=== PATIENT | female | born 1950 | race Caucasian/White ===

== ENCOUNTER 2020-10-21 09:11 | Emergency (ER) | payer MEDICARE, SELFPAY ==
[2020-10-21 09:13] VITALS: BP 117/87; PULSE 77; RESP 16; TEMP 37; O2SAT 98; BMI 23.3
--- NOTE | 2020-10-21 10:28 | HMH.EDUTC ---
[facility] [place] Disposition Clinical Impression: Exposure to COVID-19 virus Disposition: Home, Self-Care Condition on Discharge: Good Instructions: Preventing the Spread of Coronavirus Discharge Instructions Additional Instructions: Drink plenty of fluids. Take tylenol for pain or fever. Return if you begin to have difficulty breathing. Follow up with your regular doctor. GO TO THE ER FOR ANY WORSENING SYMPTOMS Quarantine until you know the results of your covid-19 test. If it is positive, the health department should call you and give you further instructions about your length of Quarantine and other thing. Referrals: Ted Rodriguez MD [Primary Care Provider] - Time of Disposition: 10:29 Medical Decision Making - Medical Records Medical records reviewed: No: I reviewed the patient's medical records. - Lucas Inquiry Pt receiving controlled substance: No Vital Signs: 10/21/20 09:13 10/21/20 10:33 Temperature 98.6 F 98.6 F Temperature Source Oral Pulse Rate 77 Pulse Rate [Right] 77 Respiratory Rate 16 16 Blood Pressure 117/87 Blood Pressure [Right Arm] 117/87 Blood Pressure Mean [Right Arm] 97 02 Sat by Pulse Oximetry 98 [facility] [place] HPI - General Stated complaint: covid test exposure Time Seen by Provider: 10/21/20 10:28 - History of Present Illness Provider Complaint: She has been exposed to covid-19 around 4 days ago. She has been vaccinated. She denies any symptoms. - Related Data Allergies Allergy/AdvReac Type Severity Reaction Status Date / Time amiodarone [AMIODARONE] Allergy Unknown Unverified 02/20/17 14:01 [facility] History - Hepatitis A Screen Attestation statement:: This patient has been screened for Hepatitis A risk factors. I have reviewed the patient's past medical history: Yes ROS Obtained: Yes All systems reviewed & no additional complaints - Constitutional Constitutional: Reports system reviewed and no additional complaints, except as docu - Eyes Eyes: Reports system reviewed and no additional complaints, except as docu - ENT Ears, Nose, Mouth, and Throat: Reports system reviewed and no additional complaints, except as docu - Cardiovascular Cardiovascular: Reports system reviewed and no additional complaints, except as docu - Respiratory Respiratory: Reports system reviewed and no additional complaints, except as docu - Gastrointestinal Gastrointestingal: Reports: system reviewed and no additional complaints, except as docu Physical Exam - General General appearance: alert, in no apparent distress - Head Head exam: atraumatic, normocephalic, normal inspection - Eye Eye exam: Present: normal appearance, PERRL, EOMI - ENT ENT exam: Present: normal exam, normal oropharynx, mucous membranes moist, TM's normal bilaterally, normal external ear exam - Neck Neck exam: Present: normal inspection, full ROM, trachea midline. Absent: meningismus, lymphadenopathy - Chest Chest inspection: Present: normal inspection, symmetric chest wall rise. Absent: tenderness - Respiratory Respiratory exam: Present: normal lung sounds bilaterally. Absent: respiratory distress - Cardiovascular Cardiovascular exam: Present: regular rate, normal rhythm. Absent: JVD - Abdominal Exam Abdominal exam: Present: soft, normal bowel sounds. Absent: distention, tenderness, guarding - Extremities Exam Extremities exam: Present: normal inspection, full ROM, normal capillary refill. Absent: calf tenderness - Back Exam Back exam: Present: normal inspection. Absent: tenderness - Neurological Exam Neurological exam: Present: alert, oriented X3 - Psychiatric Psychiatric exam: Present: normal affect, normal mood - Skin Skin exam: Present: warm, dry, intact, normal color - Lymphatic Lymphatic Findings: no adenopathy
[2020-10-21 10:33] VITALS: BP 117/87; PULSE 77; RESP 16; TEMP 37; O2SAT 98
== END 2020-10-21 10:33 | disposition home or self-care (01) ==
PROVIDERS: Emergency Provider Nurse Practitioner Family; PCP Family Medicine
DX: Z20.822 Contact with and (suspected) exposure to COVID-19 (principal)
CPT/HCPCS: G0463; 99202; U0003

== ENCOUNTER 2021-06-18 11:29 | Emergency (ER) | payer MEDICARE, SELFPAY ==
[2021-06-18 11:30] VITALS: BP 138/82; PULSE 78; RESP 18; TEMP 36.9; O2SAT 97; BMI 25.7
--- NOTE | 2021-06-18 11:54 | HMH.EDUTC ---
[facility] [place] Disposition Clinical Impression: Sinusitis Disposition: Home, Self-Care Condition on Discharge: Good Instructions: DI for Sinusitis Additional Instructions: Take all medications as prescribed until gone Prescriptions: Amoxicillin [Amoxicillin 875MG Tab] 875 mg PO Q12H #20 tab Transmission Status: Pending to [facility] predniSONE [Prednisone 20mg Tab] 20 mg PO BID 5 Days #10 tab Transmission Status: Pending to [facility] Referrals: Ted Rodriguez MD [Primary Care Provider] - Time of Disposition: 12:04 Medical Decision Making - Lucas Inquiry Pt receiving controlled substance: No [facility] [place] HPI - General Stated complaint: head congestion Time Seen by Provider: 06/18/21 11:54 - History of Present Illness Provider Complaint: Patient has had sinus pain and pressure, congestion in head, pain behind eyes, sore throat for 3-4 days. Taking allergy meds without relief. No fever. Has been very tired. Onset (ago): day(s) (4) Location: head Relieving factors: none Exacerbating factors: none Associated symptoms: denies other symptoms Treatments prior to arrival: other (loratadine) - Related Data Previous Rx's Medication Instructions Recorded Amoxicillin [Amoxicillin 875MG 875 mg PO Q12H #20 tab 06/18/21 Tab] predniSONE [Prednisone 20mg 20 mg PO BID 5 Days #10 tab 06/18/21 Tab] Allergies Allergy/AdvReac Type Severity Reaction Status Date / Time amiodarone [AMIODARONE] Allergy Unknown Unverified 02/20/17 14:01 [facility] History - Hepatitis A Screen Attestation statement:: This patient has been screened for Hepatitis A risk factors. I have reviewed the patient's past medical history: Yes ROS Obtained: Yes All systems reviewed & no additional complaints - Constitutional Constitutional: Reports fatigue, Reports headache(s), Reports malaise - ENT Ears, Nose, Mouth, and Throat: Reports nasal discharge, Reports sinus pain, Reports sinus pressure, Reports sore throat Physical Exam - General General appearance: alert, in no apparent distress - Head Head exam: normocephalic - Eye Eye exam: Present: PERRL - ENT ENT exam: Present: TM's normal bilaterally - Expanded ENT Exam Nose exam: Present: sinus tenderness Throat exam: Present: other (PND) - Neck Neck exam: Present: normal inspection. Absent: lymphadenopathy - Chest Chest inspection: Present: normal inspection, symmetric chest wall rise - Respiratory Respiratory exam: Present: normal lung sounds bilaterally. Absent: respiratory distress - Cardiovascular Cardiovascular exam: Present: regular rate, normal rhythm - Neurological Exam Neurological exam: Present: alert, oriented X3 - Psychiatric Psychiatric exam: Present: normal affect, normal mood - Skin Skin exam: Present: warm, dry, intact
[2021-06-18 12:10] VITALS: BP 138/82; PULSE 78; RESP 18; TEMP 36.9; O2SAT 97
== END 2021-06-18 12:15 | disposition home or self-care (01) ==
PROVIDERS: Emergency Provider Physician Assistant; PCP Family Medicine
DX: J01.90 Acute sinusitis, unspecified (principal)
CPT/HCPCS: 99212; G0463

== ENCOUNTER 2021-09-24 09:05 | Emergency (ER) | payer MEDICARE, SELFPAY ==
[2021-09-24 09:20] VITALS: BP 114/90; PULSE 82; RESP 19; TEMP 36.7; O2SAT 98; BMI 23.3
--- NOTE | 2021-09-24 09:40 | XR_ITS ---
PROCEDURE INFORMATION: Exam: XR Complete Acute Abdomen Series Including Chest Exam date and time: 09/24/2021 9:44 AM Age: 71 years old Clinical indication: Constipation TECHNIQUE: Imaging protocol: Radiologic exam. Complete acute abdomen series, including 2 or more views of the abdomen and a single view chest. COMPARISON: CR CXR CHEST(2 VIEWS-NOT PORTABLE) 07/27/2015 4:14 AM FINDINGS: Lungs: Normal. No consolidation. Pleural spaces: Normal. No pleural effusions. No pneumothorax. Heart/Mediastinum: Normal. No cardiomegaly. Gastrointestinal tract: Nonspecific bowel gas pattern, without gaseous distension. Moderate fecal loading. Intraperitoneal space: Normal. No free air. Bones/joints: Normal. No acute fracture. Soft tissues: Normal. IMPRESSION: 1. Nonspecific bowel gas pattern, without gaseous distension. 2. Moderate fecal loading.
--- NOTE | 2021-09-24 09:42 | HMH.EDUTC ---
[facility] [place] Clinical Impression: Constipation Qualifiers: Constipation type: other constipation type Qualified Code(s): K59.09 - Other constipation Disposition: Home, Self-Care Condition on Discharge: Good Instructions: DI for Constipation, Increased Dietary Fiber May Improve Constipation Conditions With Pelvic Wilberto, Constipation (Alternative Therapy) Additional Instructions: mag citrate as directed if any worsening of symptoms or no improvement return or be seen in the ed monitor for fever and abd pain follow up with pcp start taking miralx daily increase fluid intake Prescriptions: Magnesium Citrate [Magnesium Citrate 10oz Bottle] 10 oz PO ONCE 1 Days #30 ml Transmission Status: Pending to [facility] Referrals: Ted Rodriguez MD [Primary Care Provider] - Time of Disposition: 11:10 Medical Decision Making - Lucas Inquiry Pt receiving controlled substance: No Vital Signs: 09/24/21 09:20 Temperature 98.1 F Temperature Source Oral Pulse Rate [Right Brachial] 82 Respiratory Rate 19 Blood Pressure [Right Arm] 114/90 Blood Pressure Mean [Right Arm] 98 Blood Pressure Source [Right Arm] Manual Cuff/ Doppler Blood Pressure Position [Right Arm] Sitting 02 Sat by Pulse Oximetry 98 Oxygen Delivery Method Room Air Orders (Tests/Meds): ED MEDICATIONS Discontinued Medications Generic Name Dose Route Start Last Admin Trade Name Freq PRN Reason Stop Dose Admin Sodium Phosphate 133 ml 09/24/21 09:52 09/24/21 10:30 Fleet 133ml Enema RC 09/24/21 09:53 133 ml ONCE ONE Administration Medical Decision Narrative: pt was given a enema and was not able to hold for long and states she had a bm suppository given and the amt of stool was greatly decreased [facility] [place] - General Chief complaint: Urgent [facility] Stated complaint: CANT USE BATHROOM FOURTH DAY Time Seen by Provider: 09/24/21 09:42 Mode of Arrival: Ambulatory Source of Information: Patient Limitations: No Limitations Description of Symptoms (Recalled from Triage Doc. by RN): PATIENT C/O CONSTIPATION X 4 DAYS HEENT Symptoms (Recalled from RN notes): No Resp Symptoms (Recalled from RN notes): No Skin Symptoms (Recalled from RN notes): No MS Symptoms (Recalled from RN notes): No Functional Status (Recalled from RN notes): WNL - History of Present Illness Provider Complaint: 71 yr old female presents for constipation. pt states its been 4 days since she had a good bm. pt states she has had small bm but still feels like she needs to go more. pt states she has not tried anything otc - Related Data Previous Rx's Medication Instructions Recorded Amoxicillin [Amoxicillin 875MG 875 mg PO Q12H #20 tab 06/18/21 Tab] predniSONE [Prednisone 20mg 20 mg PO BID 5 Days #10 tab 06/18/21 Tab] Magnesium Citrate [Magnesium 10 oz PO ONCE 1 Days #30 ml 09/24/21 Citrate 10oz Bottle] Allergies Allergy/AdvReac Type Severity Reaction Status Date / Time amiodarone [AMIODARONE] Allergy Unknown Verified 06/18/21 12:14 - Worker's Comp Is this a Worker's Comp case?: No [facility] History - Hepatitis A Screen Attestation statement:: This patient has been screened for Hepatitis A risk factors. I have reviewed the patient's past medical history: Yes ROS Obtained: Yes Systems reviewed as appropriate & no additional complaints - Constitutional Constitutional: Reports system reviewed and no additional complaints, except as docu, Denies fatigue, Denies fever(s) - Eyes Eyes: Reports system reviewed and no additional complaints, except as docu, Denies dry eyes - ENT Ears, Nose, Mouth, and Throat: Reports system reviewed and no additional complaints, except as docu, Denies sore throat - Cardiovascular Cardiovascular: Reports system reviewed and no additional complaints, except as docu, Denies chest pain - Respiratory Respiratory: Reports system reviewed and no additional complaints, except as docu, Cory
[2021-09-24 11:14] VITALS: BP 114/90; PULSE 82; RESP 19; TEMP 36.7; O2SAT 98
== END 2021-09-24 11:24 | disposition home or self-care (01) ==
PROVIDERS: Emergency Provider Nurse Practitioner Family; PCP Family Medicine
DX: K59.00 Constipation, unspecified (principal)
CPT/HCPCS: 74021; 99212; G0463

== ENCOUNTER 2022-10-28 03:41 | Inpatient (IN) | payer MEDICARE, SELFPAY ==
--- NOTE | 2022-10-28 | IR_ITS ---
APPROVED REPORT Patient Location: [employer] Associate: ELIER Long RT (R) PROCEDURES 1. Left heart catheterization 2. Selective coronary arteriography 3. Left ventriculography INDICATION 1. Acute myocardial infarction, 2. Abnormal EKG SCAI INDICATION 72-year-old white female who presented and coded in the emergency room. [place] to have lateral ST elevation and therefore brought to the cardiac catheterization laboratory. Informed consent was obtained prior to the procedure. COMPLICATIONS None Estimated Blood Loss: Less than 10 ml TECHNIQUE One percent lidocaine was used to anesthetize the right groin. The right femoral artery was accessed via the Seldinger technique. A 6-St Lucian sheath was placed in the right femoral artery. The JL-4 and JR-4 catheter was also used to perform left heart catheterization left ventriculogram and selective coronary angiogram. At the end of the procedure the patient was transferred to the post-op holding area in stable condition for arterial sheath removal. ANGIOGRAPHIC RESULTS The left main artery Left main coronary artery angiographically normal The left anterior descending artery With mild luminal irregularities The circumflex artery Moderate in size with smooth 20% proximal stenosis The right coronary artery Large and dominant with mild luminal irregularities The CASE ventriculogram reveals Ejection fraction 30 to 35% with global hypokinesis The left ventricular end-diastolic pressure 24 Minx device was placed in the left common femoral artery after the procedure was complete IMPRESSION 1. Trivial coronary artery disease 2. Moderate reduction in left ventricular systolic function 3. Elevated left ventricular end-diastolic pressure 4. Successful placement of a Mynx device in the left common femoral artery PLAN 1. At present time it is unclear as to what the cause of patient's condition is. Sudden shortness of breath. Possible pulmonary embolus. Chest tube was placed in the emergency room. She has trivial coronary artery disease. The left ventricular systolic function is down but this may be secondary to her CODE STATUS. It is global decrease in left ventricular systolic function. She is on pressors at present time. We will continue to follow throughout the hospital course but no intervention is needed at this time Electronically signed by : Rehan Strong MD 10/28/2022 05:22:55
[2022-10-28 03:15] VITALS: RESP 22; O2SAT 98
--- NOTE | 2022-10-28 03:17 | ECG_ITS ---
APPROVED REPORT Exam: Resting ECG HR:73 bpm ECG Measurements Heart Rate 73 AXES QRSd 134 QRS 85 QT 437 T 30 QTc 462 Conclusion Marked sinus bradycardia with heart rate less than 30 Artifact in other leads Marked first-degree AV block ABNORMAL ECG UNCONFIRMED REPORT Electronically signed by : Ted Jhaveri MD 10/31/2022 17:26:58
--- NOTE | 2022-10-28 03:18 | PC.NURSE ---
ekg sent to dr maloney
--- NOTE | 2022-10-28 03:19 | PC.NURSE ---
cpr initiated @ 0318 due to PEA rhythm. IO INITIATED to right lower leg, good return, flushes easily. secured with padded dressing.
--- NOTE | 2022-10-28 03:19 | PC.NURSE ---
replies STEMI and advises call team and dr campos.
--- NOTE | 2022-10-28 03:20 | PC.NURSE ---
insertion of 7.5 ETT, 26 @ the lip
--- NOTE | 2022-10-28 03:20 | PC.NURSE ---
paged dr campos, waiting on return call
--- NOTE | 2022-10-28 03:31 | PC.NURSE ---
continuing to wait on dr campos to return call. texted dr maloney, and received separate number to call [phone] per dr maloney.
--- NOTE | 2022-10-28 03:37 | PC.NURSE ---
epinephrine given per acls protocols, compressions resumed
--- NOTE | 2022-10-28 03:39 | XR_ITS ---
PROCEDURE INFORMATION: Exam: XR Chest Exam date and time: 10/28/2022 3:27 AM Age: 72 years old Clinical indication: Device placement; Ett placement (vent status); Additional info: Intubation TECHNIQUE: Imaging protocol: Radiologic exam of the chest. Views: 1 view. COMPARISON: CR XR ACUTE ABDOMEN SERIES 09/24/2021 9:44 AM FINDINGS: Tubes, catheters and devices: The ET tube extends to the right mainstem bronchus. Lungs: Increased airspace disease is noted bilaterally. Pleural spaces: Unremarkable. No pleural effusion. No pneumothorax. Heart/Mediastinum: The heart is mildly enlarged. Bones/joints: Unremarkable. IMPRESSION: 1. ET tube in right mainstem bronchus, recommend withdrawing 5-6 cm. 2. Bilateral airspace disease.
--- NOTE | 2022-10-28 03:40 | PC.NURSE ---
pulse check, PEA,epi given. cpr resumed 034:pulse obtained via doppler epi gtt initiated @ 5 mcg @ 0344
--- NOTE | 2022-10-28 03:47 | PC.NURSE ---
pulled back ett back to 24 @ lip per md request
--- NOTE | 2022-10-28 03:49 | PC.NURSE ---
air methods decline due to weather
--- NOTE | 2022-10-28 03:50 | PC.NURSE ---
air evac declined flight due to weather
--- NOTE | 2022-10-28 03:50 | PC.NURSE ---
epi drip increased to 10mcg at this time.
--- NOTE | 2022-10-28 03:56 | PC.NURSE ---
heparin bolus given, heparin initiated
[2022-10-28 03:57] VITALS: BMI 26.5
[2022-10-28 03:59] VITALS: BP 140/120; PULSE 107; RESP 22; O2SAT 100
[2022-10-28 04:08] VITALS: BP 113/52; PULSE 105; RESP 22; O2SAT 95
--- NOTE | 2022-10-28 04:11 | PC.NURSE ---
pulse check. PEA. resumed CPR, EPI gtt temporarily stopped, 1mg epi given per acls
--- NOTE | 2022-10-28 04:14 | PC.NURSE ---
epi given, cpr continue. rhythm check, PEA, cpr continued.
[2022-10-28 04:16] LABS: Activated Partial Thrombo Time 26.3 seconds (22.8-30.6)
[2022-10-28 04:17] LABS: PTT Heparin (inpatient only) 26.3 Seconds (23.6-34.0)
--- NOTE | 2022-10-28 04:17 | PC.NURSE ---
pulse check with palpable pulse confirmed. pacer initiated @ capture achieved at 60 bpm.
--- NOTE | 2022-10-28 04:21 | PC.NURSE ---
pacing stopped per provider request.
[2022-10-28 04:40] LABS: Alanine Aminotransferase 241 U/L (12-78); Albumin Level 2.3 g/dl (3.5-5.0); Albumin/Globulin Ratio 0.9 (1.1-1.8); Alkaline Phosphatase 105 U/L (38-126); Anion Gap 17.6 mEq/L (5-15); Aspartate Amino Transferase 342 U/L (14-36); Bilirubin,Total 0.5 mg/dl (0.2-1.3); Blood Urea Nitrogen 13 mg/dl (7-17); Calcium 8.1 mg/dl (8.4-10.2); Carbon Dioxide 16 mmol/L (22.0-30.0); Chloride 108 mmol/L (98-107); Creatinine Clearance Estimated 53 mL/min (50-200); Estimated Glomerular Filt Rate 54 ml/min (>60); GFR (African American) 66 ML/MIN (>60); Globulin 2.5 g/dL (1.3-3.2); Glucose 309 mg/dl (74-100); Potassium 3.6 mmoL/L (3.5-5.1); Sodium 138 mmol/L (136-145); Total Protein,Serum 4.8 g/dl (6.3-8.2)
[2022-10-28 04:43] LABS: Basophils # 0.1 K/mm3 (0-0.2); Basophils % 0.6 % (0.1-2.0); Eosinophils # 0.1 K/mm3 (0.0-0.4); Eosinophils % 0.8 % (0.1-12.0); Hematocrit 39.5 % (37.0-47.0); Lymphocytes # 4.8 K/mm3 (0.7-4.5); Lymphocytes % 58.6 % (10-50); Mean Corpuscular HGB Conc 30.2 g/dL (31.8-35.4); Mean Corpuscular Hemoglobin 28.2 pg (27.0-31.2); Mean Corpuscular Volume 93.3 fl (81-99); Mean Platelet Volume 9.5 fl (7.4-10.4); Monocytes # 0.2 K/mm3 (0.1-1.0); Monocytes % 2.9 % (1.7-9.3); Neutrophils # 3.1 K/mm3 (1.8-7.8); Neutrophils % 37.1 % (37.0-80.0); Platelet Count 232 K/mm3 (142-424); Red Blood Count 4.24 M/mm3 (4.20-5.40); Red Cell Distribution Width 14.9 % (11.5-17.5); White Blood Count 8.2 K/mm3 (4.8-10.8)
[2022-10-28 04:44] LABS: MANUAL DIFFERENTIAL MANUAL DIFFERENTIAL (MANUAL DIFF)
--- NOTE | 2022-10-28 05:19 | PC.NURSE ---
0320- 1 mg epinephrine given. fsbs 126 mg/dl 0322-pulse check, PEA,cpr resumed 0323-epinephrine given 1mg per ACLS protocol 0325-pulse check, VTACH, defibrillated at 200J, PEA. Continue CPR. 0326- in-line suctioning, epinephrine 0328-right side chest tube placed, 28 fr by MD utilizing sterile technique 0329-regained palpable pulse at this time, orders to initiate heparin gtt, heparin bolus, epinephrine gtt; label rewinder paged 4850-bp 95/66, chest x ray obtained
[2022-10-28 05:25] LABS: VBG Base Excess -15.3 mmol/L (-2.4-2.3); VBG HCO3 15.3 mmol/L (23-30); VBG Oxygen Saturation 68.6 % (50-70); VBG PCO2 57.3 mmol/L (35-51); VBG PH 7.04 mmol/L (7.31-7.41)
[2022-10-28 05:27] LABS: Lymphocytes % 61 % (10-50); Monocytes % 1 % (2-9); Neutrophils % 38 % (42-76); Platelet Estimate Normal; RBC Morphology Normal; Total Cells Counted 100
--- NOTE | 2022-10-28 05:30 | HMH.EDMCLR ---
Discharge Plan Disposition Patient Disposition: Clinical Impressions Clinical Impression: Cardiac arrest Discharge ED Provider: Pauline Gonzalez Medical Clearance HPI General Stated complaint: CP Time Seen by Provider: 10/28/22 03:59 History of Present Illness HPI Narrative: This 72-year-old female with atrial fibrillation on Eliquis presents to the emergency department via EMS. Patient's family called 911 after patient was complaining of shortness of breath. Reportedly earlier today patient had been normal. Patient became acutely short of breath. On EMS arrival patient was complaining of chest pain. Patient was hemodynamically stable in route. Upon arrival to the ambulance bay, patient became less responsive. She was unable to provide history. All history provided by EMS. Previous Rx's Medication Instructions Recorded amoxicillin 875 mg tablet 875 mg PO Q12H #20 tabs 06/18/21 prednisone 20 mg tablet 20 mg PO BID 5 days #10 tabs 06/18/21 magnesium citrate 10 oz PO ONCE 1 day #30 mL 09/24/21 Allergies Allergy/AdvReac Type Severity Reaction Status Date / Time amiodarone [AMIODARONE] Allergy Unknown Verified 06/18/21 12:14 [facility] Disclaimer: The information contained in this section may have been updated after the patient was seen, as this information can be updated by other users. Medical History (Updated 10/28/22 @ 08:27 by Pauline Gonzalez MD) A-fib Social History (Updated 10/28/22 @ 07:41 by José Miguel Grullon APRN) Smoking Status: Smoker, status unknown alcohol intake: never current occupational status: retired Travel in the last 8 weeks: None ROS Obtained: Yes unobtainable due to endotracheal tube Physical Exam General General appearance: obtunded Comment: pale Head Head exam: atraumatic and normocephalic ENT ENT exam: Present mucous membranes moist Neck Neck exam: Present full ROM Chest Chest inspection: Present normal inspection Respiratory Respiratory exam: Present respiratory distress and other (Agonal respirations on arrival); Absent normal lung sounds bilaterally Cardiovascular Cardiovascular exam: Present other (Pulseless on arrival) Abdominal Exam Abdominal exam: Present soft; Absent distention Neurological Exam Neurological exam: Present other (GCS 3) Skin Skin exam: Present dry and pallor; Absent warm (Cool) Medical Decision Making Lucas Inquiry Pt receiving controlled substance: No Vital Signs: 10/28/22 03:15 10/28/22 05:30 10/28/22 05:32 Temperature Temperature Source Pulse Rate 122 H Respiratory Rate 22 Blood Pressure Blood Pressure Source Blood Pressure Source [Right Arm] Automatic Cuff Blood Pressure Position 02 Sat by Pulse Oximetry 98 Oxygen Delivery Method Oxygen Flow Rate (LPM) 15 10/28/22 03:59 10/28/22 04:08 10/28/22 07:08 Temperature 97.0 F L Temperature Source Rectal Pulse Rate 107 H 105 H 107 H Respiratory Rate 22 22 22 Blood Pressure 140/120 H 113/52 L 144/120 H Blood Pressure Source Automatic Cuff Automatic Cuff Automatic Cuff Blood Pressure Source [Right Arm] Blood Pressure Position Sitting Sitting Sitting 02 Sat by Pulse Oximetry 100 95 Oxygen Delivery Method Mechanical Ventilation Mechanical Ventilation Mechanical Ventilation Oxygen Flow Rate (LPM) Lab Data Lab Results 10/28/22 03:30: VBG pH 7.04 L, VBG pCO2 57.3 H, VBG pO2 53.0 H, VBG HCO3 15.3 L, VBG Total CO2 17.0 L, VBG O2 Saturation 68.6, VBG Base Excess -15.3 L 10/28/22 03:48: WBC 8.2, RBC 4.24, Hgb 12.0 L, Hct 39.5, MCV 93.3, MCH 28.2, MCHC 30.2 L, RDW 14.9, Plt Count 232, MPV 9.5, Neut % (Auto) 37.1, Lymph % (Auto) 58.6 H, Jasper % (Auto) 2.9, Eos % (Auto) 0.8, Baso % (Auto) 0.6, Neut # (Auto) 3.1, Lymph # (Auto) 4.8 H, Jasper # (Auto) 0.2, Eos # (Auto) 0.1, Baso # (Auto) 0.1, Total Counted 100, Neutrophils % (Manual) 38 L, Lymphocytes % (Manual) 61 H, Monocytes % (Manual) 1 L, Platelet Estimate Normal, RBC Morpho
[2022-10-28 05:32] VITALS: PULSE 122
--- NOTE | 2022-10-28 05:40 | SUR.PHASEII ---
Family at beside
--- NOTE | 2022-10-28 05:43 | SUR.PHASEII ---
Pateint brought to label printer holding area, heart rate became joaquin, patient lost pulse, code called.
--- NOTE | 2022-10-28 05:46 | SUR.PHASEII ---
DNR discussed with family and dr jones, family wishes patient be a DNR
--- NOTE | 2022-10-28 05:46 | SUR.PHASEII ---
0530: Pt noted to be bradycardia on monitor in 40s 0533; pulse check with doppler, no pulse, compression started 0534: epi given 0536: pulse check, pulse back per doppler
[2022-10-28 05:51] LABS: CATHL Activated Clotting Time 369 SEC (74-125)
--- NOTE | 2022-10-28 05:56 | SUR.PHASEII ---
Family remaining at bedside
--- NOTE | 2022-10-28 06:07 | SUR.PHASEII ---
Family at beside, pt in PEA, no pulse, pt stating he does not wish continue CPR or any ACLS protocol.
--- NOTE | 2022-10-28 06:09 | SUR.PHASEII ---
Dr Gonzalez at beside to pronounce
--- NOTE | 2022-10-28 06:37 | SUR.PHASEII ---
time of 0265
--- NOTE | 2022-10-28 06:59 | EXP.HPDC ---
General Admission date:: 10/28/22 Discharge date: 10/28/22 *Admission Date: 10/28/22 *Chief complaint: shorness of breath *History of present illness: 72 yo female with apparent history of afib, on eliquis, history obtained from discussion with the ER doctor, as well as chart reviewed. Patient was complaining of shortness of breath started at home, became tachycardic during EMS transportation, following for chest pain. As soon as patient arrived, patient coded and was into a ACLS, later taken to landscaping and groundskeeping laborer. after heart cath finished patient coded one more time. And family decided to stop resucitaion efforts. Patient was pronounced . [facility] Disclaimer: The information contained in this section may have been updated after the patient was seen, as this information can be updated by other users. Medical History (Updated 10/28/22 @ 08:27 by Pauline Gonzalez MD) A-fib Social History (Updated 10/28/22 @ 07:41 by José Miguel Grullon APRN) Smoking Status: Smoker, status unknown alcohol intake: never current occupational status: retired Travel in the last 8 weeks: None Review of Systems Review of Systems Review of systems:: unable to obtain Exam Data for Last 24 hours Vital signs and Labs for Last 24 Hours: Pulse Resp Pulse Ox O2 Flow Rate FiO2 122 H 22 98 15 100 10/28/22 05:32 10/28/22 03:15 10/28/22 03:15 10/28/22 05:30 10/28/22 05:30 Laboratory Results - last 24 hr 10/28/22 03:30: VBG pH 7.04 L, VBG pCO2 57.3 H, VBG pO2 53.0 H, VBG HCO3 15.3 L, VBG Total CO2 17.0 L, VBG O2 Saturation 68.6, VBG Base Excess -15.3 L 10/28/22 03:48: WBC 8.2, RBC 4.24, Hgb 12.0 L, Hct 39.5, MCV 93.3, MCH 28.2, MCHC 30.2 L, RDW 14.9, Plt Count 232, MPV 9.5, Neut % (Auto) 37.1, Lymph % (Auto) 58.6 H, Crowley % (Auto) 2.9, Eos % (Auto) 0.8, Baso % (Auto) 0.6, Neut # (Auto) 3.1, Lymph # (Auto) 4.8 H, Crowley # (Auto) 0.2, Eos # (Auto) 0.1, Baso # (Auto) 0.1, Total Counted 100, Neutrophils % (Manual) 38 L, Lymphocytes % (Manual) 61 H, Monocytes % (Manual) 1 L, Platelet Estimate Normal, RBC Morphology Normal, APTT 26.3, Sodium 138, Potassium 3.6, Chloride 108 H, Carbon Dioxide 16 L, Anion Gap 17.6 H, BUN 13, Creatinine 1.00, Estimated Creat Clear 53, Estimated GFR 54 L, Est GFR ( Amer) 66, Glucose 309 H, Calcium 8.1 L, Total Bilirubin 0.5, AST 342 H*, ALT 241 H, Alkaline Phosphatase 105, Total Protein 4.8 L, Albumin 2.3 L, Globulin 2.5, Albumin/Globulin Ratio 0.9 L 10/28/22 04:52: Activated Clotting Time 369 H* I & O for Last 24 hours: Intake & Output 10/25/22 10/26/22 10/27/22 10/28/22 23:59 23:59 23:59 23:59 Weight 68.039 kg *Routine HEENT Exam Head: Present normocephalic and atraumatic Eye: Present other ENT: Present other *Routine Respiratory Exam Respiratory: Present patient mechanically ventilated *Routine Cardiovascular Exam Cardiovascular: Present other *Routine Abdominal Exam Abdominal: Present other *Routine Rectal Exam Rectal:: other *Routine Genitalia Exam Genitalia:: other Meds Home Medications and Allergies Home Medications Medication Instructions Recorded Confirmed Type amoxicillin 875 mg tablet 875 mg PO Q12H #20 tabs 06/18/21 Rx prednisone 20 mg tablet 20 mg PO BID 5 days #10 tabs 06/18/21 Rx magnesium citrate 10 oz PO ONCE 1 day #30 mL 09/24/21 Rx New Prescriptions to Start Prescriptions: Allergies Allergy/AdvReac Type Severity Reaction Status Date / Time amiodarone [AMIODARONE] Allergy Unknown Verified 06/18/21 12:14 Hospital Course Hospital Course Hospital Course: 72 yo female with apparent history of afib, on eliquis, history obtained from discussion with the ER doctor, as well as chart reviewed. Patient was complaining of shortness of breath started at home, became tachycardic during EMS transportation, following for chest pain. As soon as patient arrived, patient coded and was into a ACLS, later taken to landscaping and groundskeeping laborer. after heart cath finished patient coded on
[2022-10-28 07:08] VITALS: BP 144/120; PULSE 107; RESP 22; TEMP 36.1; O2SAT 100
--- NOTE | 2022-10-28 08:15 | PC.NURSE ---
Addendum entered by Cathy Parker RN 10/28/22 16:43: removed IO in left kapoor also Original Note: 0815-removed both IV's, pt's debbie ALSTON, and all ekg leads etc on pt
--- NOTE | 2022-10-28 08:28 | PC.NURSE ---
0730-notified ABILIO of pt's passing, ABILIO following pt and will call this RN back shortly
--- NOTE | 2022-10-28 09:08 | PC.NURSE ---
per Faye with ABILIO placed 5 drops NS each eye and closed and placed paper tape on top; placed ice packs on chest, under both arms, and both groins
--- NOTE | 2022-10-28 16:00 | PC.NURSE ---
ABILIO called back and pt has been ruled out, Faye New
--- NOTE | 2022-10-28 16:09 | PC.NURSE ---
notified [facility] that pt is ready to be picked up
--- NOTE | 2022-11-05 17:21 | P.DN_ITS ---
Pronouncement Note Date and Time of Date of : 10/28/22 Time of : 06:13 PCOD Preliminary cause of : Cardiac arrest Contributing Factors (1) Cardiac arrest: (2) Pulmonary embolism and infarction: Additional Data Confirmation of : no pulse, no respirations and no heart sounds Family: at bedside Attending/PCP notified?: Yes Attending physician: Alexandr Loza MD Autopsy requested?: No automobile insurance claim examiner notified?: Yes
--- NOTE | 2022-11-05 17:23 | EXP.DEATH.DS ---
Discharge Sum: Prov Provider Primary care physician: Ted Rodriguez MD Visit Care Team Role Provider Type Ted Rodriguez MD Primary Care Provider Referring Pauline Gonzalez MD Emergency Provider ER Physician Alexandr Loza MD Admit Provider Staff Physician Attending Provider Discharge Sum: Diag PCOD Cause of : Cardiac arrest Contributing Factors (1) Cardiac arrest: (2) Pulmonary embolism and infarction: Discharge Sum: Summary Date and Time Date of admission: 10/28/22 06:24 Date of : 10/28/22 Time of : 06:13 Hospital Course prior to Hospital Course Information: See ED provider note documented by Pauline Gonzalez MD. In brief summary, patient had presented to the emergency department after concerns of respiratory distress. She coded on arrival. Multiple rounds of ACLS and procedures were performed in the emergency department prior to patient going to cardiac Facilities Maintenance Technician. Coronaries were clear. After Facilities Maintenance Technician, patient coded for a fourth time. ROSC was again achieved. Through shared decision making with the family, they elected to make the patient DNR at that time. Patient passed shortly thereafter. Additional Data Confirmation of as documented by pronouncing clinician: no pulse, no respirations and no heart sounds Family: at bedside Attending/PCP notified?: Yes Attending physician: Alexandr Loza MD Autopsy requested?: No knitted cloth examiner notified?: Yes Hospice patient?: No
== END 2022-10-28 16:42 | disposition expired | DRG 176 ==
LOC: ER 03:46 → 2ND 07:40
PROVIDERS: Internal Medicine Cardiovascular Disease; Nurse Practitioner Family; Admitting Provider Internal Medicine Adolescent Medicine; Emergency Provider Emergency Medicine; PCP Family Medicine; Visit Provider Internal Medicine Adolescent Medicine
PROC: B2151ZZ Fluoroscopy of Left Heart using Low Osmolar Contrast (ICD-10-PCS; principal; 2022-10-28 03:55)
DX: I26.99 Other pulmonary embolism without acute cor pulmonale (principal); I46.9 Cardiac arrest, cause unspecified; I48.91 Unspecified atrial fibrillation; R00.1 Bradycardia, unspecified
CPT/HCPCS: 32551; 51702; 71045; 80053; 82803; 85007; 85025; 85347; 85730; 87070; 87205; 92950; 93005; 93458; 99152; 99153; 99291; 99292; C1725; C1769; C1894; G0378; J1644; Q9967